=== PATIENT | male | born 1995 | race Caucasian/White ===

== ENCOUNTER 2016-05-04 23:28 | Emergency (ER) | payer OTHER ==
--- NOTE | 2016-05-05 00:14 | EDDOCDS ---
Physician Documentation [facility] Name: Dudley Guerrero Age: 20 yrs Sex: Male : 1995 Arrival Date: 05/04/2016 Time: 23:28 Bed I2 / M2 Private MD: No Pcp Disposition: 05/05/16 00:01 Discharged to Home/Self Care. Impression: Urticaria. - Condition is Stable. - Discharge Instructions: Hives. - Medication Reconciliation, Local Pharmacy Hours form. - Follow up: [facility]; When: Call to arrange an appointment; Reason: Further diagnostic work-up, Recheck today's complaints, Continuance of care. - Problem is new. - Symptoms are unchanged. Historical: - Allergies: No known drug Allergies; - Home Meds: 1. Benadryl Oral 100mg (Last dose: 05/04/2016 21:00) - PMHx: none; - PSHx: none; - Social history: Smoking status: Patient states was never smoker of tobacco. No barriers to communication noted, The patient speaks fluent Fijian, Speaks appropriately for age. - Family history: Not pertinent. - : The pt / caregiver states he / she is not on anticoagulants. Home medication list is obtained from the patient. - Exposure Risk Screening:: None identified. Vital Signs: 05/04 23:31 BP 138 / 61; Pulse 45; Resp 18 S; Temp 95.7(O); Pulse Ox 100% on R/A; Weight 77.11 kg / gr2 170 lbs (R); Height 5 ft. 10 in. (177.80 cm) (R); Pain 0/10; 23:31 Body Mass Index 24.39 (77.11 kg, 177.80 cm) gr2 MDM: 05/05 00:12 Financial registration complete. hs2 00:13 [facility] Payment Agreement was scanned into [email or web address] and attached to record. hs2 Signatures: Víctor Moeller RN RN cz Karen Camarillo RN RN lf1 Mau Bland PA PA btw Germaine Wilson, Reg Reg hs2 The chart was reviewed and I authenticate all verbal orders and agree with the evaluation and treatment provided.Attachments: 00:13 [facility] Payment Agreement hs2 MTDD
--- NOTE | 2016-05-05 00:14 | EDDOCDS ---
Nurse's Notes [facility] Name: Dudley Guerrero Age: 20 yrs Sex: Male : 1995 Arrival Date: 05/04/2016 Time: 23:28 Bed I2 / M2 Private MD: No Pcp Diagnosis: Urticaria Presentation: 05/04 23:33 Presenting complaint: Patient states: he developed a rash on body around 2100 tonight cz no new foods similar episode a few months ago no idea what is causing it. Adult Sepsis Screening: The patient does not have new or worsening altered mentation. Patient's respiratory rate is less than 22. Systolic blood pressure is greater than 100. Patient has a qSOFA score of 0- Negative Sepsis Screen. Suicide/Homicide risk assessment- the patient denies having any suicidal and/or homicidal ideations and does not present with any other emotional, behavioral or mental health complaints. 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 Transition of care: patient was not received from another setting of care. 23:33 Acuity: KVNG Level 4 cz 23:33 Method Of Arrival: Walkin/Carried/Asstd cz Triage Assessment: 23:35 General: Appears in no apparent distress. Pain: Denies pain. HIV screening NA for this cz visit Offered previously. Historical: - Allergies: No known drug Allergies; - Home Meds: 1. Benadryl Oral 100mg (Last dose: 05/04/2016 21:00) - PMHx: none; - PSHx: none; - Social history: Smoking status: Patient states was never smoker of tobacco. No barriers to communication noted, The patient speaks fluent Maltese, Speaks appropriately for age. - Family history: Not pertinent. - : The pt / caregiver states he / she is not on anticoagulants. Home medication list is obtained from the patient. - Exposure Risk Screening:: None identified. Screenin/13 00:00 Screening information is obtained from the patient. Fall risk: No risks identified. lf1 00:08 Assistance ADL's: requires no assistance with activities of daily living. Abuse/DV lf1 Screen: The patient / caregiver reports he/she is: not in a situation that causes fear, pain or injury. Nutritional screening: No deficits noted. Advance Directives: Currently, there is no health care proxy. home support is adequate. Assessment: 00:00 Adult Sepsis Screening: The patient does not have new or worsening altered mentation. lf1 Patient's respiratory rate is less than 22. Systolic blood pressure is greater than 100. Patient has a qSOFA score of 0- Negative Sepsis Screen. General: Appears in no apparent distress, comfortable, Behavior is cooperative. Pain: Denies pain. Neurological: Level of Consciousness is awake, alert. EENT: No deficits noted. Cardiovascular: No deficits noted. Respiratory: Respiratory effort is even, unlabored, Respiratory pattern is regular, Breath sounds are clear bilaterally. GI: Denies nausea, vomiting. Derm: Rash noted that is itchy, red, on back, chest, right arm and left arm. Vital Signs: 05/04 23:31 BP 138 / 61; Pulse 45; Resp 18 S; Temp 95.7(O); Pulse Ox 100% on R/A; Weight 77.11 kg gr2 (R); Height 5 ft. 10 in. (177.80 cm) (R); Pain 0/10; 23:31 Body Mass Index 24.39 (77.11 kg, 177.80 cm) gr2 Vitals: 23:31 Log In Time: May 04, 2016 at 23:31. gr2 ED Course: 23:29 Patient visited by Abbey Limon. gr2 23:29 Patient moved to Waiting gr2 23:30 No Pcp is Private Physician. gr2 23:32 Patient visited by Abbey Limon. gr2 23:32 Patient moved to Pre RCE gr2 23:34 Triage Initiated cz 23:37 Patient moved to I2 / M2 cz 23:44 Mau Bland PA is PHCP. btw 23:44 Hector Concepcion DO is Attending Physician. btw 23:49 Patient visited by Mau Bland PA. btw 05/05 00:00 The patient / caregiver is instructed regarding the plan of care and ED course. lf1 00:01 [facility] is Referral Physician. btw 00:08 No IV's were initiated during this patient's visit. No procedures done that require lf1 assistance. 00:13 [facility] Payment Agreement was scanned into [employer] and attached to record. hs2 Order Results: There are currently no results for this order. Outcome: 00:01 Discharge ordered by Provider. btw 00:08 Discharge Assessment: Patient awake, alert and oriented x 3. No cognitive and/or lf1 functional deficits noted. Patient verbalized understanding of disposition instructions. Patient awake and alert. Oriented to person, place and time. Patient verbalized understanding of disposition instructions. Patient has no functional deficits. patient administered narcotics - no. The following High Risk Discharge criteria are identified: None. Discharged to home ambulatory. Condition: unchanged. Discharge instructions given to patient, Instructed on discharge instructions, follow up and referral plans. medication usage, Demonstrated understanding of instructions, medications, Pt was receptive of discharge instructions/ teaching. No special radiology studies were completed. Property :Personal belongings accompany Pt. 00:13 Patient left the ED. lf1 Signatures: Víctor Moeller, RN RN Karen Potter RN RN lf1 Mau Bland PA PA btw Abbey Limon gr2 Germaine Wilson, Reg Reg hs2 MIL
--- NOTE | 2016-05-07 01:14 | EDDOCDS ---
Nurse's Notes [facility] Name: Dudley Guerrero Age: 20 yrs Sex: Male : 1995 Arrival Date: 05/04/2016 Time: 23:28 Bed I2 / M2 Private MD: No Pcp Diagnosis: Urticaria Presentation: 05/04 23:33 Presenting complaint: Patient states: he developed a rash on body around 2100 tonight cz no new foods similar episode a few months ago no idea what is causing it. Adult Sepsis Screening: The patient does not have new or worsening altered mentation. Patient's respiratory rate is less than 22. Systolic blood pressure is greater than 100. Patient has a qSOFA score of 0- Negative Sepsis Screen. Suicide/Homicide risk assessment- the patient denies having any suicidal and/or homicidal ideations and does not present with any other emotional, behavioral or mental health complaints. 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 Transition of care: patient was not received from another setting of care. 23:33 Acuity: KVNG Level 4 cz 23:33 Method Of Arrival: Walkin/Carried/Asstd cz Triage Assessment: 23:35 General: Appears in no apparent distress. Pain: Denies pain. HIV screening NA for this cz visit Offered previously. Historical: - Allergies: No known drug Allergies; - Home Meds: 1. Benadryl Oral 100mg (Last dose: 05/04/2016 21:00) - PMHx: none; - PSHx: none; - Social history: Smoking status: Patient states was never smoker of tobacco. No barriers to communication noted, The patient speaks fluent German, Speaks appropriately for age. - Family history: Not pertinent. - : The pt / caregiver states he / she is not on anticoagulants. Home medication list is obtained from the patient. - Exposure Risk Screening:: None identified. Screenin/13 00:00 Screening information is obtained from the patient. Fall risk: No risks identified. lf1 00:08 Assistance ADL's: requires no assistance with activities of daily living. Abuse/DV lf1 Screen: The patient / caregiver reports he/she is: not in a situation that causes fear, pain or injury. Nutritional screening: No deficits noted. Advance Directives: Currently, there is no health care proxy. home support is adequate. Assessment: 00:00 Adult Sepsis Screening: The patient does not have new or worsening altered mentation. lf1 Patient's respiratory rate is less than 22. Systolic blood pressure is greater than 100. Patient has a qSOFA score of 0- Negative Sepsis Screen. General: Appears in no apparent distress, comfortable, Behavior is cooperative. Pain: Denies pain. Neurological: Level of Consciousness is awake, alert. EENT: No deficits noted. Cardiovascular: No deficits noted. Respiratory: Respiratory effort is even, unlabored, Respiratory pattern is regular, Breath sounds are clear bilaterally. GI: Denies nausea, vomiting. Derm: Rash noted that is itchy, red, on back, chest, right arm and left arm. Vital Signs: 05/04 23:31 BP 138 / 61; Pulse 45; Resp 18 S; Temp 95.7(O); Pulse Ox 100% on R/A; Weight 77.11 kg gr2 (R); Height 5 ft. 10 in. (177.80 cm) (R); Pain 0/10; 23:31 Body Mass Index 24.39 (77.11 kg, 177.80 cm) gr2 Vitals: 23:31 Log In Time: May 04, 2016 at 23:31. gr2 ED Course: 23:29 Patient visited by Abbey Limon. gr2 23:29 Patient moved to Waiting gr2 23:30 No Pcp is Private Physician. gr2 23:32 Patient visited by Abbey Limon. gr2 23:32 Patient moved to Pre RCE gr2 23:34 Triage Initiated cz 23:37 Patient moved to I2 / M2 cz 23:44 Mau Bland PA is PHCP. btw 23:44 Hector Concepcion DO is Attending Physician. btw 23:49 Patient visited by Mau Bland PA. btw 05/05 00:00 The patient / caregiver is instructed regarding the plan of care and ED course. lf1 00:01 [facility] is Referral Physician. btw 00:08 No IV's were initiated during this patient's visit. No procedures done that require lf1 assistance. 00:13 [facility] Payment Agreement was scanned into [employer] and attached to record. hs2 00:20 Patient name changed from Dudley\S\D\S\Guerrero\S\ to Dudley\S\Jadon\S\Guerrero. EDWY 10:17 T-Sheet-- Draft Copy was scanned into [employer] and attached to record. gb Order Results: There are currently no results for this order. Outcome: 00:01 Discharge ordered by Provider. btw 00:08 Discharge Assessment: Patient awake, alert and oriented x 3. No cognitive and/or lf1 functional deficits noted. Patient verbalized understanding of disposition instructions. Patient awake and alert. Oriented to person, place and time. Patient verbalized understanding of disposition instructions. Patient has no functional deficits. patient administered narcotics - no. The following High Risk Discharge criteria are identified: None. Discharged to home ambulatory. Condition: unchanged. Discharge instructions given to patient, Instructed on discharge instructions, follow up and referral plans. medication usage, Demonstrated understanding of instructions, medications, Pt was receptive of discharge instructions/ teaching. No special radiology studies were completed. Property :Personal belongings accompany Pt. 00:13 Patient left the ED. lf1 Signatures: [facility] ED[facility] Víctor Moeller, RN RN cz Mai Irwin, Reg Reg gb Karen Camarillo RN RN lf1 Mau Bland PA PA btw Abbey Limon gr2 Germaine Wilson, Reg Reg hs2 Chart Complete MTDD
--- NOTE | 2016-05-07 01:14 | EDDOCDS ---
Physician Documentation [facility] Name: Dudley Guerrero Age: 20 yrs Sex: Male : 1995 Arrival Date: 05/04/2016 Time: 23:28 Bed I2 / M2 Private MD: No Pcp Disposition: 05/05/16 00:01 Discharged to Home/Self Care. Impression: Urticaria. - Condition is Stable. - Discharge Instructions: Hives. - Medication Reconciliation, Local Pharmacy Hours form. - Follow up: [facility]; When: Call to arrange an appointment; Reason: Further diagnostic work-up, Recheck today's complaints, Continuance of care. - Problem is new. - Symptoms are unchanged. Historical: - Allergies: No known drug Allergies; - Home Meds: 1. Benadryl Oral 100mg (Last dose: 05/04/2016 21:00) - PMHx: none; - PSHx: none; - Social history: Smoking status: Patient states was never smoker of tobacco. No barriers to communication noted, The patient speaks fluent Greek, Speaks appropriately for age. - Family history: Not pertinent. - : The pt / caregiver states he / she is not on anticoagulants. Home medication list is obtained from the patient. - Exposure Risk Screening:: None identified. Vital Signs: 05/04 23:31 BP 138 / 61; Pulse 45; Resp 18 S; Temp 95.7(O); Pulse Ox 100% on R/A; Weight 77.11 kg / gr2 170 lbs (R); Height 5 ft. 10 in. (177.80 cm) (R); Pain 0/10; 23:31 Body Mass Index 24.39 (77.11 kg, 177.80 cm) gr2 MDM: 05/05 00:12 Financial registration complete. hs2 00:13 [facility] Payment Agreement was scanned into [employer] and attached to record. hs2 10:17 T-Sheet-- Draft Copy was scanned into [employer] and attached to record. gb Signatures: Víctor Moeller RN RN cz Mai Irwin, Reg Reg gb Karen Camarillo RN RN lf1 Mau Bland PA PA btw Germaine Wilson, Reg Reg hs2 The chart was reviewed and I authenticate all verbal orders and agree with the evaluation and treatment provided.Attachments: 00:13 [facility] Payment Agreement hs2 10:17 T-Sheet-- Draft Copy gb Chart Complete MTDD
--- NOTE | 2016-05-07 01:14 | EDDOCDS ---
Physician Documentation [facility] Name: Dudley Guerrero Age: 20 yrs Sex: Male : 1995 Arrival Date: 05/04/2016 Time: 23:28 Bed I2 / M2 Private MD: No Pcp Disposition: 05/05/16 00:01 Discharged to Home/Self Care. Impression: Urticaria. - Condition is Stable. - Discharge Instructions: Hives. - Medication Reconciliation, Local Pharmacy Hours form. - Follow up: [facility]; When: Call to arrange an appointment; Reason: Further diagnostic work-up, Recheck today's complaints, Continuance of care. - Problem is new. - Symptoms are unchanged. Historical: - Allergies: No known drug Allergies; - Home Meds: 1. Benadryl Oral 100mg (Last dose: 05/04/2016 21:00) - PMHx: none; - PSHx: none; - Social history: Smoking status: Patient states was never smoker of tobacco. No barriers to communication noted, The patient speaks fluent Nepalese, Speaks appropriately for age. - Family history: Not pertinent. - : The pt / caregiver states he / she is not on anticoagulants. Home medication list is obtained from the patient. - Exposure Risk Screening:: None identified. Vital Signs: 05/04 23:31 BP 138 / 61; Pulse 45; Resp 18 S; Temp 95.7(O); Pulse Ox 100% on R/A; Weight 77.11 kg / gr2 170 lbs (R); Height 5 ft. 10 in. (177.80 cm) (R); Pain 0/10; 23:31 Body Mass Index 24.39 (77.11 kg, 177.80 cm) gr2 MDM: 05/05 00:12 Financial registration complete. hs2 00:13 [facility] Payment Agreement was scanned into [employer] and attached to record. hs2 10:17 T-Sheet-- Draft Copy was scanned into [employer] and attached to record. gb Signatures: Víctor Moeller RN RN cz Mai Irwin, Reg Reg gb Karen Camarillo RN RN lf1 Mau Bland PA PA btw Germaine Wilson, Reg Reg hs2 The chart was reviewed and I authenticate all verbal orders and agree with the evaluation and treatment provided.Attachments: 00:13 [facility] [place] Agreement hs2 10:17 T-Sheet-- Draft Copy gb Chart Complete MTDD
== END 2016-05-05 00:13 | disposition home or self-care (01) ==
LOC: M ED 23:28
DX: L50.9 Urticaria, unspecified (principal)

== ENCOUNTER → 2020-09-29 | Outpatient (CLI) | payer OTHER ==
--- NOTE | 2020-09-30 20:58 | REPVR ---
PROCEDURE INFORMATION: Exam: XR Left Finger(s) Exam date and time: 09/29/2020 1:33 PM Age: 24 years old Clinical indication: Other: Left thumb; Additional info: Left thumb puncture wound TECHNIQUE: Imaging protocol: XR Left fingers. Views: Minimum 2 views. COMPARISON: No relevant prior studies available. FINDINGS: Bones/joints: Normal. Soft tissues: Normal. IMPRESSION: No acute findings. Electronically signed by: Charly Jimenez On 09/30/2020 20:58:11 PM
== END ==
LOC: M RAD 13:22
PROVIDERS: ATTEND Physician Assistant Medical
DX: S61.432A Puncture wound without foreign body of left hand, initial encounter (principal); S61.042A Puncture wound with foreign body of left thumb without damage to nail, initial encounter; Y92.89 Other specified places as the place of occurrence of the external cause; Y93.89 Activity, other specified; Y99.8 Other external cause status; X58.XXXA Exposure to other specified factors, initial encounter